=== PATIENT | female | born 1990 ===

== ENCOUNTER 2018-11-20 08:37 | Day surgery (SDC) | payer MEDICAID ==
[2018-11-20] MEDS ORDERED: LIDOCAINE 2% MDV (20MG/ML) 20ML VIAL IV ONE (08:38)
[2018-11-20] MEDS ORDERED: PROPOFOL 10 MG/ML VIAL IV ONE (08:38)
[2018-11-20] MEDS ORDERED: SCOPOLAMINE 1 PATCH TDSY TD ONE (08:38)
[2018-11-20] MEDS ORDERED: MIDAZOLAM HCL 2MG/2ML VIAL IV ONE (08:38)
[2018-11-20] MEDS ORDERED: ONDANSETRON HCL IV 4 MG/2 ML VIAL IVP ONE (08:38)
[2018-11-20] MEDS ORDERED: DIPHENHYDRAMINE HCL 50 MG/ML VIAL IVP ONE (08:38)
[2018-11-20] MEDS ORDERED: DEXAMETHASONE 4 MG/ML 1ML VIAL IVP ONE (08:38)
[2018-11-20] MEDS ORDERED: SEVOFLURANE 250 ML INH ONE (08:38)
[2018-11-20] MEDS ORDERED: FENTANYL PF 100MCG/2ML VIAL IV ONE (08:38)
[2018-11-20] MEDS ORDERED: TRAMADOL HCL 50 MG TABLET PO ONE (08:38)
--- NOTE | 2018-11-21 08:30 | Operative Note ---
DATE OF SURGERY: 11/20/2018 Surgeon: David Benitez DO PREOPERATIVE DIAGNOSIS: Dorsal scapholunate ganglion of the right wrist. POSTOPERATIVE DIAGNOSIS: Dorsal scapholunate ganglion of the right wrist. OPERATION: Excision of dorsal scapholunate ganglion of the right wrist using 2.5 loop magnification. DESCRIPTION OF PROCEDURE: This 28-year-old female was taken to the operating room and placed in the supine position on the operating room table. General anesthetic was administered. The right upper extremity was elevated. It was prepped with Hibiclens and draped in the usual sterile fashion. It was exsanguinated and the tourniquet inflated to 250 mmHg. A dorsal incision was made across the dome of the ganglion on the dorsal radial aspect of the wrist dissecting down through the skin and subcutaneous tissue. Superficial veins and radial nerve were retracted safely out of the way. The dome of the ganglion was actually quite large and we dissected circumferentially around it. The stalk was seen to be emanating from the scapholunate. We dissected down to the stalk an removed the ganglion and also removed the stalk from the joint capsule. Electrocautery was used to cauterize the capsule at the scapholunate joint. The wound was irrigated with lactated Ringer's solution and the subcutaneous tissue was subsequently closed with 4-0 Vicryl and a running subcuticular 4-0 nylon suture. Sterile dressings were applied with plaster splint immobilization with the wrist in neutral position. The patient was then taken to the recovery room in satisfactory condition. GROSS PATHOLOGY: This patient demonstrated a large scapholunate ganglion emanating from the joint filled with a somewhat gelatinous, blood-tinged fluid. The specimen was sent to the laboratory for analysis. CC: JUS Mcintyre
== END 2018-11-20 11:05 | disposition home or self-care (01) ==
LOC: SUR 08:37
PROVIDERS: ATTEND Orthopaedic Surgery
DX: M67.431 Ganglion, right wrist (principal); F31.9 Bipolar disorder, unspecified; R25.1 Tremor, unspecified
CPT/HCPCS: 81025; J1200; J2405

== ENCOUNTER 2019-02-14 17:34 | Emergency (ER) | payer MEDICAID ==
--- NOTE | 2019-02-14 17:48 | Emergency Department Record ---
History of Present Illness - General Chief complaint: Rash Stated complaint: RASH Source: Patient Mode of Arrival: Ambulatory Limitations: No limitations - History of Present Illness Initial comments: 28 yo female presents to ED for evaluation of itching and small blisters that have erupted on the skin between the fingers and on yvonne extensor surfaces of the knees. Patient reports a history of similar symptoms previously with unknown cause. Patient reports that her symptoms last approximately 1 week before resolving. Patient was seen in [facility] 2 days ago, diagnosed with eczema and started on Triamcinolone for her symptoms. MD complaint: Rash Onset/Timin -: Week(s) Location: LUE, RUE, LLE, RLE Severity: Mild Quality: Other (itching) Improves with: None Worsens with: None Context: None Associated symptoms: Denies other symptoms Treatments Prior to Arrival: Corticosteroid - Related Data Allergies Allergy/AdvReac Type Severity Reaction Status Date / Time acetaminophen [From Tylenol] Allergy Severe Rash and Verified 02/14/19 17:40 Hives Review of Systems Constitutional: Denies: Chills, Fever, Malaise, Night sweats Eyes: Denies: Eye discharge, Eye pain ENT: Denies: Congestion, Ear pain, Epistaxis Respiratory: Denies: Cough, Dyspnea Cardiovascular: Denies: Chest pain, Dyspnea on exertion Endocrine: Denies: Fatigue, Heat or cold intolerance Gastrointestinal: Denies: Abdominal pain Genitourinary: Denies: Incontinence, Retention Musculoskeletal: Denies: Arthralgia, Back pain Skin: Reports: Rash. Denies: Bruising, Change in color Neurological: Denies: Abnormal gait, Confusion, Headache, Numbness, Tingling, Tremors Psychiatric: Denies: Anxiety Hematological/Lymphatic: Denies: Anemia, Blood Clots Past Medical History - SOCIAL HISTORY Smoking Status: Never smoker - RESPIRATORY Hx Respiratory Disorders: No - CARDIOVASCULAR Hx Cardio Disorders: No - NEURO Hx Neuro Disorders: Yes Hx of Migraines: Yes (occassionally) - GI Hx GI Disorders: No - Hx Genitourinary Disorders: No Comment:: depo provera - ENDOCRINE Hx Endocrine Disorders: No - MUSCULOSKELETAL Hx Musculoskeletal Disorders: Yes Comment:: ganglion right wrist - PSYCH Hx Psych Problems: Yes Hx Behavior Problems: Yes (in past started as a toddler.) Hx Depression: Yes Hx Suicide Attempt: Yes (in past) Comment:: Bipolar. Pt had inpatient treatment for 4 years. doing quite well now. - HEMATOLOGY/ONCOLOGY Hx Hematology/Oncology Disorders: Yes Hx Blood Transfusions: Yes (possibly at 18 mos old) Family Medical History Family Hx Comment (NOT TO BE USED IN PLACE OF ITEMS BELOW): unknown pt is adopted from [facility] at age 2. Physical Exam - General General Appearance: Alert, Oriented x3, Cooperative, No acute distress Limitations: No limitations - Head Head exam: Atraumatic, Normocephalic, Normal inspection Head exam detail: negative: Abrasion, Contusion, Denny's sign, General tenderness, Hematoma, Laceration - Eye Eye exam: Normal appearance. negative: Conjunctival injection, Periorbital swelling, Periorbital tenderness, Scleral icterus - ENT Ear exam: negative: Auricular hematoma, Auricular trauma Nasal Exam: negative: Active bleeding, Discharge, Dried blood, Foreign body Mouth exam: negative: Drooling, Laceration, Muffled voice, Tongue elevation - Neck Neck exam: Normal inspection. negative: Meningismus, Tenderness - Respiratory Respiratory exam: Normal lung sounds bilaterally. negative: Respiratory distress, Rhonchi, Stridor, Wheezes - Cardiovascular Cardiovascular Exam: Regular rate, Normal rhythm, Normal heart sounds - GI/Abdominal GI/Abdominal exam: Soft. negative: Rebound, Rigid, Tenderness - Rectal Rectal exam: Deferred - exam: Deferred - Extremities Extremities exam: Other (Areas of small blisters and thickened skin to the knees bilaterally as well as between the fingers.). negative: Calf tenderness, Pedal edema, Tenderness - Back Back exam: Denies: CVA tenderness (R), CVA tenderness (L) - Neurological Neurological exam: Alert, Normal gait, Oriented X3 - Psychiatric Psychiatric exam: Normal affect, Normal mood - Skin Skin exam: Normal color. negative: Abrasion Type of lesion: negative: abrasion Course - Reevaluation(s) Reevaluation #1: 02/14/19 17:54 Patient was seen and examined. Exam demonstrates small (2 mm diameter) blisters with thickening of the skin affecting the interdigital area and extensor surfaces of the knees. No burrows to suggest scabies Findings are not consistent with cellulitis, urticaria, fungal infection, or reaction. ? viral vs. medication reaction Will refer the patient to Caro Velasco for further evaluation. Disposition Disposition: Discharge Clinical Impression: Dermatitis Disposition: Home, Self-Care Condition: (2) Stable Instructions: Itchy Skin (ED) Additional Instructions: Return to ED if your symptoms worsen or if you have any concerns. Follow-up with Caro Velasco in 5-7 days as directed in the [facility] as directed. Referrals: CARO VELASCO [CONSULTING PHYSICIAN] - [facility] [Provider Group] Forms: Patient Portal Access Time of Disposition: 17:47 Quality - Quality Measures Quality Measures: N/A - Blood Pressure Screening Does Patient Have Any of the Following: No Blood Pressure Classification: Hypertensive Reading Systolic Measurement: 145 Diastolic Measurement: 91 Screening for High Blood Pressure: < First Hypertensive BP, F/U Documented > [ [id number]] First Hypertensive Follow-up Interventions: Referral to alternative/primary care provider.
== END 2019-02-14 18:02 | disposition home or self-care (01) ==
LOC: ER 17:34
DX: L30.9 Dermatitis, unspecified (principal)
CPT/HCPCS: 99282